=== PATIENT | male | born 1980 | race Caucasian/White ===

== ENCOUNTER 2017-04-25 07:57 | Day surgery (SDC) | payer OTHER ==
[~2017-04-25] VITALS: Ht 170.2 cm; Wt 96.2 kg
[~2017-04-25 07:57] MED LIST: ACET325T9 PO; BUPIVACAINE MPF 0.5% 30 ML VIAL. ONE; BUSP10TA PO; CALC200T3 PO; HYDROmorphone 2 MG/ML VIAL IV PRN; IBUP-1027 PO; IV RINGERS,LACTATED 1000ML 1,000 ML IV SCH; LIDOCAINE 1% PF 2 ML VIAL. ID PRN; LIDOCAINE 1% PF 30 ML VIAL. ONE; ONDANSETRON PF 4 MG/2 ML VIAL. IV PRN; PROCHLORPERAZINE 10 MG/2 ML VIAL. IV PRN; SIMV40TA PO; fentaNYL PF VIAL 100 MCG/2 ML VIAL IV PRN
[2017-04-25] MEDS ORDERED: LIDOCAINE 2% PF Vial for OR 5 ML VIAL. ONE (08:50)
[2017-04-25] MEDS ORDERED: ONDANSETRON PF 4 MG/2 ML VIAL. ONE (08:50)
[2017-04-25] MEDS ORDERED: DEXAMETHASONE SOD PHOS 20 MG/5 ML VIAL. ONE (08:50)
[2017-04-25] MEDS ORDERED: PROPOFOL 20 ML IV ONE (08:50)
[2017-04-25] MEDS ORDERED: fentaNYL PF VIAL 100 MCG/2 ML VIAL ONE ×2 (08:50→10:33)
[2017-04-25] MEDS ORDERED: MIDAZOLAM HCL/PF 2 MG/2 ML VIAL. ONE (08:54)
--- NOTE | 2017-04-25 09:07 | DISCH ---
DISCHARGE INSTRUCTIONS Condition on Discharge Condition on Discharge: Stable Activity After Discharge Activity Instructions for Disc: Other ROM activity Other activity instructions: WIGGLE FINGERS Bathing Instructions: Shower-keep dressing dry Lifting Instructions after Dis: No heavy lifting, No pulling or pushing Weight Bearing Status after Di: Other, see below Sexual Activity Restrictions: No lifting more than 2-3lbs Diet after Discharge Diet after Discharge: Regular Wound Incision Care Wound/Incision Care: Ice to area for comfort, Keep wound/cast CDI, Keep wound elevated, Do not change dressing Contacting the DRJay after DC Call your doctor for: Concerns you may have Follow-Up Follow up with: Radha in 2wks GODFREY MARQUES II, MD Apr 25, 2017 09:07
--- NOTE | 2017-04-25 09:11 | PDOC ---
BRIEF OPERATIVE NOTE Date: Apr 25, 2017 Pre-Op Diagnosis R ulnar fx nonunion Post-Op Diagnosis same Procedure Performed ORIF R ulna Surgeon [employer] Chairman Noemi Anesthesiologist James Anesthesia Type: General, Local Blood Loss 25mL Complications none GODFREY MARQUES II, MD Apr 25, 2017 09:11
[2017-04-25] MEDS: fentaNYL PF VIAL 100 MCG/2 ML VIAL IV PRN ×2 (10:42→10:49)
--- NOTE | 2017-04-25 10:42 | OP ---
DATE OF SURGERY: 04/25/2017 SURGEON: Rubén Marques MD CHIEF DEVELOPMENT OFFICER: Alexandra Franklin. PREOPERATIVE DIAGNOSIS: Right ulnar shaft fracture nonunion. POSTOPERATIVE DIAGNOSIS: Right ulnar shaft fracture nonunion. PROCEDURE PERFORMED: ORIF right ulnar. COMPONENTS INSERTED: [employer] 3.5 mm tubular locking plate, 7-hole. COMPLICATIONS: None. TOURNIQUET TIME: 35 minutes. ESTIMATED BLOOD LOSS: 25 mL. FINDINGS: The patient had fibrotic tissue and hypertrophic nonunion with the fibrotic tissue interposed between the fracture site. COMPLICATIONS: None. REASON FOR PROCEDURE: The patient is a gentleman who had been following for his ulnar shaft fracture. He presented to me in delayed fashion and over the past several months, he has not shown any radiographic signs of progressing towards union and has had persistent pain interfering with his ability to work. Because of this, we had a discussion of risks, benefits, alternatives of the above surgery and he elected to proceed. DESCRIPTION OF PROCEDURE: The patient was greeted in the preoperative area by myself. Correct extremity was marked and verified. He was taken to the operative suite and antibiotics were started en route. Once in the OR, transferred gently supine to the OR table and secured to the bed with all pressure points padded. After this, we placed a nonsterile tourniquet to his right upper arm and then proceeded to prep and drape the right upper extremity in our usual sterile fashion and conducted a standard preoperative timeout. I then palpated and marked the surface anatomy including nonunion site as well as his ulnar shaft and cathy line on the skin for my skin incision. We then exsanguinated the extremity with an Esmarch and insufflated the tourniquet to 250 mmHg. After this, I incised skin with a scalpel and dissected subcutaneous tissue with electrocautery and tenotomies. I incised fascia in line with skin incision. I identified his fracture site, used electrocautery longitudinally over this. I then incised his periosteum along his ulnar as well. I used periosteal elevator to expose the nonunion site in his ulnar shaft in anticipation of my plate application. I then used a fine-tipped rongeur and a small [place] to debride the fracture site of the fibrotic tissue. After I had mobilized the fracture site, I used a small drill bit, 2.5 mm, to drill holes into his ulnar shaft to reestablish the medullary canal. After this, I used [id number] forceps and applied this and then checked my reduction under biplanar fluoroscopy and I was happy with it. I then placed my plate with 3 holes above and 3 below the fracture site. I then secured the plate to the bone with 2 nonlocking screws, 1 above and below the fracture site and checked images, again I was happy with everything. I then placed two more nonlocking screws above and below the fracture site, followed by 2 locking screws as well. I directed my attention to the back table and was able to get some good bone from what I had debrided, there were some small pieces of bone that I then impacted into this nonunion site. This was done after irrigating out the operative field. We then let the tourniquet down and I cauterized a couple of bleeders. After this, I closed the fascia with simple interrupted 0 Vicryl. Inverted interrupted 2-0 was used for subcutaneous tissue and travis were used for the skin. I injected about 15 mL of local anesthetic mixture into the whit-incisional area as well. The arm was cleansed and dried. We then placed Xeroform, 4 x 4's, sterile cast padding and then fashioned a dorsal and volar slab splint to leave his elbow and fingers free. I opted not to place a sugar tong as he had been battling some elbow stiffness throughout all this. In addition to that, he had no increased pain with elbow range of motion and so I felt he would be adequately comfortable and protected with the 2 slabs. After the splint was hardened, he was awakened from anesthesia. He tolerated surgery well. Prior to completion of wound closure, all counts were reported correct x 2. No complications. He was transferred supine to the recovery room cart and taken to PACU in stable and extubated condition. Postoperative plan is to discharge him back to the longterm facility. I will see him back in 2 weeks, sooner should problems arise. RUBÉN MARQUES MD DR: SAM/magali JOB#: [id number] / [id number] DANIA
[2017-04-25] MEDS ORDERED: HYDROcodone/APAP 5/325MG 1 TAB TABLET PO ONE (11:00)
[2017-04-25] MEDS ORDERED: MORPHINE SULFATE 2 MG/ML DISP.SYRIN. ONE (11:10)
[2017-04-25] MEDS: MORPHINE SULFATE 2 MG/ML DISP.SYRIN. IV PRN ×2 (11:13→11:22)
[2017-04-25] MEDS ORDERED: HYDROcodone/APAP 10/325 1 TAB TABLET PO ONE (11:30)
[2017-04-25] MEDS ORDERED: MORPHINE SULFATE 4 MG/ML DISP.SYRIN. IV ONE (11:30)
[2017-04-25 12:00] VITALS: BP 140/77
== END 2017-04-25 12:30 | disposition home or self-care (01) ==
LOC: SURG 07:57
PROVIDERS: ATTEND Orthopaedic Surgery Sports Medicine
DX: S52.291A Other fracture of shaft of right ulna, initial encounter for closed fracture (principal); X58.XXXA Exposure to other specified factors, initial encounter; Y93.89 Activity, other specified; Y92.89 Other specified places as the place of occurrence of the external cause; Y99.8 Other external cause status; Y99.9 Unspecified external cause status; E78.00 Pure hypercholesterolemia, unspecified; K21.9 Gastro-esophageal reflux disease without esophagitis; F17.200 Nicotine dependence, unspecified, uncomplicated; Z87.39 Personal history of other diseases of the musculoskeletal system and connective tissue
CPT/HCPCS: 25400; 76000; C1713; J0690; J1100; J2250; J2270; J2405; J2704; J3010; J3490; J2001